=== PATIENT | female | born 1965 | race Caucasian/White ===

== ENCOUNTER 2018-02-11 07:32 | Day surgery (SDC) | payer MEDICAID ==
[~2018-02-11 07:32] MED LIST: Lactated Ringers 1,000 ML IV SCH; Sodium Chloride 0.9% 10 ML Syringe FLUSH PRN
[2018-02-11] MEDS: ceFAZolin 2 GM in Premix Bag 1 BAG IV ONE ×2 (09:05→09:25)
[2018-02-11] MEDS ORDERED: HYDROmorphone 2 MG/ML SDV IV ONE (09:30)
[2018-02-11] MEDS ORDERED: Ondansetron 4 MG/2 ML SDV IVPUSH ONE (09:30)
[2018-02-11] MEDS ORDERED: Ketorolac 30 MG/ML SDV IVPUSH ONE (09:30)
[2018-02-11] MEDS ORDERED: Midazolam 1 MG/ML 2 ML SDV IV ONE (09:30)
[2018-02-11] MEDS ORDERED: Lactated Ringers 1,000 ML IV ONE (09:30)
[2018-02-11] MEDS ORDERED: Propofol 200 MG/20 ML SDV IV ONE (09:30)
[2018-02-11] MEDS ORDERED: Scopolamine 1.5 MG Transdermal Patch TOP ONE (09:30)
[2018-02-11] MEDS ORDERED: fentaNYL 100 MCG/2 ML SDV IV ONE (09:30)
[2018-02-11] MEDS ORDERED: Bupivacaine 0.25% 30 ML SDV ONE (10:25)
[2018-02-11] MEDS ORDERED: ceFAZolin 1 GM Vial ONE (10:26)
[2018-02-11] MEDS ORDERED: Lidocaine 1% with EPINEPHrine 1:100,000 20 ML MDV ONE (10:26)
--- NOTE | 2018-02-11 11:01 | PCM.OPNOTE ---
- General Post-Op/Procedure Note Date of Surgery/Procedure: 02/11/18 Operative Procedure(s): L IH Repair with Mesh Findings: Direct Hernia Pre Op Diagnosis: L IH Post-Op Diagnosis: Same Anesthesia Technique: General LMA Primary Surgeon: Dl EDGE in mLs: 10 Complications: None Condition: Good
[2018-02-11] MEDS ORDERED: Acetaminophen/HYDROcodone 325-5 MG Tab PO PRN (11:03)
[2018-02-11] MEDS ORDERED: Morphine 2 MG/ML Syringe IVPUSH PRN (11:03)
[2018-02-11] MEDS ORDERED: hydrOXYzine HCl 50 MG/ML SDV IM ONE (11:18)
--- NOTE | 2018-02-11 18:55 | OR ---
DATE OF OPERATION: 02/11/2018 SURGEON: Dl Roman MD PREOPERATIVE DIAGNOSIS: Left inguinal hernia. POSTOPERATIVE DIAGNOSIS: Left direct inguinal hernia. PROCEDURE PERFORMED: Left inguinal hernia repair with mesh. ANESTHESIA: General laryngeal mask airway with local. DESCRIPTION OF PROCEDURE: The patient was brought to the operating room, where a time-out was performed. Surgical site had been marked by myself and the patient. General anesthesia was administered with laryngeal mask airway. The left groin was prepped with ChloraPrep and draped sterilely. A 50:50 mixture of 1% Lidocaine with epinephrine and 0.25% Marcaine was infiltrated in the skin and later on at the level of the fascia. A skin incision was made in the left groin and extended through the subcutaneous tissue. Electrocautery was used for hemostasis and some larger vessels were ligated with 3-0 Vicryl. The external fascia was identified and opened in line with the external ring. I searched for the ilioinguinal nerve and could not find any structures resembling that. A large direct hernia was present. This was from the round ligament, which was ligated near the pubic tubercle between clamps and 2-0 Vicryl ties. The direct hernia was isolated and then reduced as it appeared to only contain preperitoneal fat. The surrounding tissue was closed with running 2-0 Vicryl to reduce the preperitoneal fat to keep it out of the way of the repair. The external fascia was from the underlying muscle circumferentially. A piece of mesh was then cut to approximately 3 x 5 inches and fashioned to fit the surgical site. A routine repair was then performed by securing this to the pubic tubercle with 0 Prolene. Several more interrupted sutures were used to secure this along the shelving edge of Poupart ligament inferiorly. Laterally, the edges of the mesh were tucked beneath the external fascia. The superior edge of the mesh was secured to the muscle with interrupted 0 Prolene providing a tension-free repair. The wound was thoroughly irrigated with Ancef and saline. External fascia was closed with running 2-0 Vicryl. Subcutaneous tissue was reapproximated with #2-0 Vicryl, and the skin was closed with a running #4-0 Vicryl subcuticular suture. Benzoin and Steri-Strips were placed and sterile dressing applied. The patient tolerated the procedure well. Estimated blood loss was 10 mL. She returned to Postanesthesia in a stable condition. /[id number] ELIZ/JODI
[2018-02-12] MEDS: ceFAZolin 2 GM in Premix Bag 1 BAG IV ONE (09:15)
== END 2018-02-11 13:10 | disposition home or self-care (01) ==
LOC: FB.SDS 07:32
PROVIDERS: ATTEND Surgery
DX: K40.90 Unilateral inguinal hernia, without obstruction or gangrene, not specified as recurrent (principal); Z88.0 Allergy status to penicillin; Z88.1 Allergy status to other antibiotic agents; Z88.8 Allergy status to other drugs, medicaments and biological substances
CPT/HCPCS: 49505; 81025; A9270; C1781; J0690; J1170; J1885; J2250; J2405; J2704; J3010; J3410; J3490; J7120